=== PATIENT | male | born 1975 | race Caucasian/White ===

== ENCOUNTER 2024-06-29 21:06 | Observation (INO) | payer OTHER ==
[2024-06-29] MEDS ORDERED: Sodium Chloride 0.9% 1000 ML 1,000 ML ONE (21:34)
[2024-06-29] MEDS ORDERED: PROTONIX 40 MG IV IV ONE (21:34)
[2024-06-29] MEDS ORDERED: Zofran 4 MG/2 ML VIAL ONE (21:34)
[2024-06-29 21:37] LABS: Absolute Neutrophil Ct (ANC) 7.48 x10^3/uL (1.78-5.38); BASOPHIL % 0.4 % (0.2-1.2); Basophil (Absolute #) 0.05 x10^3/uL (0.01-0.08); Eosinophil % 2.4 % (0.8-7.0); Eosinophil (Absolute #) 0.29 x10^3/uL (0.04-0.54); Hematocrit 44.2 % (40.1-51.0); Hemoglobin 15.7 g/dL (13.7-17.5); IMMATURE GRAN # 0.07 x10^3u/L (0.001-0.031); IMMATURE GRAN % 0.6 % (0.001-0.429); Lymphocytes % 26.4 % (21.8-53.1); Mean Cell Volume 85.7 fL (79.0-92.2); Mean Corpuscular Hemoglobin 30.4 pg (25.7-32.2); Mean Corpuscular Hgb Concent. 35.5 g/dL (32.3-36.5); Mean Platelet Volume 10.4 fL (9.4-12.4); Monocyte (Absolute #) 1.03 x10^3/uL (0.30-0.82); Monocytes % 8.5 % (5.3-12.2); Neutrophil % 61.7 % (34.0-67.9); Platelet Count 212 x10^3/uL (163-337); Red Blood Count 5.16 x10^6/uL (4.63-6.08); Red Cell Distribution Width 11.9 % (11.6-14.4); White Blood Count 12.1 x10^3/uL (4.23-9.07)
[2024-06-29] MEDS: Sodium Chloride 0.9% 1000 ML 1,000 ML IV STA (21:37)
[2024-06-29] MEDS: Zofran 4 MG/2 ML VIAL IV ONE (21:38)
[2024-06-29] MEDS: PROTONIX 40 MG IV IV ONE (21:39)
[2024-06-29 21:53] LABS: ALBUMIN 4.5 g/dL (3.5-5.0); ANION GAP 15.5 MEQ/L (5-15); BILIRUBIN,TOTAL 0.4 mg/dL (0.2-1.3); Calcium 9.5 mg/dL (8.4-10.2); Creatinine 1 0.77 mg/dL (0.66-1.25); EST GLOMERULAR FILTRATION RATE 110.4 ML/MIN; Potassium 3.9 mmol/L (3.5-5.1); Total Protein 7.7 g/dL (6.3-8.2)
--- NOTE | 2024-06-29 22:25 | ERPHSYRPT ---
- History of Present Illness Time Seen by Provider: 06/29/24 21:07 Historian: patient Exam Limitations: no limitations Patient Subjective Stated Complaint: pt states sharp pain to stomach Triage Nursing Assessment: pt ambulated into the er; pt is axo x4; c/o abd pain; pt states 9/10 to epigastric region; pt c/o nausea, denies vomiting; abd round, tender; skin PDW; pt states SOB; hypertensive Physician History: 49 years old male with history of hypertension, hyperlipidemia presented in the ER with complaint of epigastric/right upper quadrant pain sudden onset almost an hour prior to arrival with associated nausea and dry heaving. Patient reports moderate to severe sharp pain, aggravated with palpation and movements. Reports because of severe pain having some difficulty breathing. Denies any radiation of pain to the chest but to the back. Allergies/Adverse Reactions: Bleach (Sodium Hypochlorite) Allergy (Verified 06/29/24 21:11) clams Allergy (Verified 06/29/24 21:11) Penicillins Allergy (Verified 06/29/24 21:11) Sulfa (Sulfonamide Antibiotics) Allergy (Verified 06/29/24 21:11) Home Medications: Albuterol Sulfate [Albuterol Sulfate Hfa] 2 puff IH Q4HPRN PRN 06/29/24 [History] Atorvastatin Calcium 20 mg PO HS 06/29/24 [History] Lisinopril 20 mg [Zestril 20 MG] 20 mg PO HS 06/29/24 [History] Lumateperone Tosylate [Caplyta] 42 mg PO HS 06/29/24 [History] Meclizine HCl 25 mg [Antivert 25 mg] 25 mg PO BID PRN 06/29/24 [History] Paliperidone [Paliperidone ER] 6 mg PO HS 06/29/24 [History] Sertraline HCl 50 mg [Zoloft 50 mg Tablet] 75 mg PO HS 06/29/24 [History] Umeclidinium Brm/Vilanterol Tr [Anoro Ellipta 62.5-25 Mcg INH] 1 each IH DAILY 06/29/24 [History] Hx Tetanus, Diphtheria Vaccination/Date Given: No (unknown) Hx Influenza Vaccination/Date Given: No Hx Pneumococcal Vaccination/Date Given: No Travel Risk - International Travel Have you traveled outside of the country in past 3 weeks: No - Emerging Infectious Disease Are you exhibiting symptoms associated with any current EIDs: Yes Symptoms: Abdominal Pain - Review of Systems Constitutional: No Symptoms Eyes: No Symptoms Ears, Nose, & Throat: No Symptoms Respiratory: No Symptoms Cardiac: No Symptoms Abdominal/Gastrointestinal: Abdominal Pain, Nausea, Vomiting Genitourinary Symptoms: No Symptoms Musculoskeletal: No Symptoms Skin: No Symptoms Neurological: No Symptoms Endocrine: No Symptoms Hematologic/Lymphatic: No Symptoms, Easy Bruising - Past Medical History Neurological History: No Pertinent History ENT History: No Pertinent History Cardiac History: High Cholesterol, Hypertension Respiratory History: Other Endocrine Medical History: Other Musculoskeletal History: Arthritis GI Medical History: No Pertinent History History: No Pertinent History Psycho-Social History: Anxiety, Bipolar, Depression Male Reproductive Disorders: No Pertinent History - Past Surgical History Past Surgical History: No - Social History Smoking Status: Former smoker Exposure to second hand smoke: No Drug Use: none - Social Determinants of Health Will the patient participate in the screening: Yes Do you worry about a steady place to live?: No Do you have any problems with any of the following?: No known problems In the past 12 months,have you had to go without utilities?: No Transportation Issues: No Has anyone in your support network made you feel unsafe?: No Have you or anyone in your house had to go without enough: No - Nursing Vital Signs Nursing Vital Signs: Initial Vital Signs Pulse Rate 82 06/29/24 21:30 Respiratory Rate 16 06/29/24 21:30 Blood Pressure 138/109 06/29/24 21:30 O2 Sat by Pulse Oximetry 99 06/29/24 21:30 Pain Scale Pain Intensity 9 - Physical Exam General Appearance: no apparent distress, alert Eye Exam: PERRL/EOMI Ears, Nose, Throat Exam: normal ENT inspection Neck Exam: normal inspection, full range of motion Respiratory Exam: normal breath sounds, lungs clear Cardiovascular Exam: regular rate/rhythm, normal heart sounds Gastrointestinal/Abdomen Exam: soft, normal bowel sounds, tenderness (Epiga stric, right upper quadrant with positive Landeros sign), guarding Extremity Exam: normal inspection, normal range of motion Neurologic Exam: alert, oriented x 3, cooperative, 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 Skin Exam: normal color SpO2 Interpretation: normal SpO2: 99 O2 Delivery: Room Air - Course EKG Interpreted by Me: RATE, Sinus Rhythm, NORMAL AXIS, NORMAL INTERVALS, NORMAL QRS Ordered Tests: Medication Summary Generic Name Dose Route Start Last Admin Trade Name Freq PRN Reason Stop Dose Admin Acetaminophen 650 mg 07/01/24 10:41 07/01/24 10:51 Acetaminophen 325 Mg Tablet PO 07/31/24 10:40 650 mg Q4H PRN PRN Administration PAIN AND/OR FEVER Hydrocodone Bitart/Acetaminophen 1 tab 07/02/24 13:23 07/02/24 23:49 Hydrocodone/Apap 5/325 1 Tab Tablet PO 07/07/24 13:22 1 tab Q4H PRN PRN Administration PAIN Albuterol/Ipratropium 3 ml 06/30/24 01:29 06/30/24 05:27 Ipratropium/Albuterol Sulfate 3 Ml Ampul.Neb IH 07/30/24 01:28 3 ml Q4HPRN PRN Administration SHORTNESS OF BREATH/WHEEZING Enoxaparin Sodium 40 mg 07/03/24 10:00 Enoxaparin Sodium 40 Mg/0.4 Ml Syringe SQ 08/02/24 09:59 DAILY HUMPHREY Levofloxacin/Dextrose 750 mg in 150 mls @ 100 mls/hr 07/01/24 12:00 07/02/24 09:16 Levofloxacin 750mg/150ml D5w IV 07/31/24 11:59 100 mls/hr Q24H10 HUMPHREY Administration Potassium Chloride/Dextrose/Sod Cl 1,000 mls @ 80 mls/hr 07/02/24 13:30 07/02/24 23:51 D5w/0.45ns W/ 20meq Kcl 1000 Ml IV 08/01/24 13:29 80 mls/hr .[id number] HUMPHREY Administration Lisinopril 20 mg 06/30/24 22:00 07/02/24 22:05 Lisinopril 20 Mg Tablet PO 07/30/24 21:59 20 mg HS HUMPHREY Administration Meclizine HCl 25 mg 07/02/24 07:43 Meclizine Hcl 25 Mg Tablet PO 08/01/24 07:42 BIDPRN PRN VERTIGO Morphine Sulfate 4 mg 06/30/24 01:29 07/02/24 13:12 Morphine Sulfate 4 Mg/Ml Injection IV 07/07/24 12:00 4 mg Q3H PRN PRN Administration PAIN Ondansetron HCl 4 mg 06/30/24 01:29 06/30/24 02:57 Ondansetron Hcl 4 Mg/2 Ml Vial IV 07/30/24 01:28 4 mg Q6H PRN PRN Administration NAUSEA/VOMITING Patient Own Med: 1 each 06/30/24 22:00 07/02/24 22:04 Caplyta 42 Mg PO 07/30/24 21:59 1 each Capsule HS HUMPHREY Administration Patient Own Med : 1 each 07/04/24 22:00 Paliperidone Er 6 Mg PO 08/03/24 21:59 Tablet HS HUMPHREY Patient Own Med: 1 each 06/30/24 22:00 07/02/24 22:04 Paliperidone 3 Mg Er PO 07/03/24 22:01 1 each Tablet HS HUMPHREY Administration Anoro 62.5/25 - 1 each 07/02/24 10:00 07/02/24 08:28 Patient Med 08/01/24 09:59 1 each DAILY HUMPHREY Administration Polyethylene Glycol 17 gm 07/01/24 15:00 07/02/24 09:17 Polyethylene Glycol 3350 17 Gm Packet PO 07/31/24 14:59 Not Given DAILY HUMPHREY Sertraline HCl 75 mg 06/30/24 22:00 07/02/24 22:05 Sertraline Hcl 50 Mg Tab PO 07/30/24 21:59 75 mg HS HUMPHREY Administration Simvastatin 40 mg 06/30/24 22:00 07/02/24 22:04 Simvastatin 20 Mg Tablet PO 07/30/24 21:59 40 mg HS HUMPHREY Administration Discontinued Medications Generic Name Dose Route Start Last Admin Trade Name Freq PRN Reason Stop Dose Admin Albuterol Sulfate 2 puff 06/30/24 19:00 Albuterol Common Canister Inhaler 07/30/24 18:59 Q4H PRN PRN SHORTNESS OF BREATH/WHEEZING Albuterol/Ipratropium 3 ml 06/30/24 10:00 Ipratropium/Albuterol Sulfate 3 Ml Ampul.Neb 07/30/24 09:59 DAILY HUMPHREY Bupivacaine HCl Confirm 07/02/24 10:49 Bupivacaine Hcl 2.5 Mg/Ml 10 Ml Administered 07/02/24 10:50 Dose 10 ml .ROUTE .STK-MED ONE Dexamethasone Sodium Phosphate Confirm 07/02/24 10:59 Dexamethasone Sod Phosphate 4 Mg/Ml Ml Administered 07/02/24 11:00 Dose 8 mg .ROUTE .STK-MED ONE Fentanyl Citrate Confirm 07/02/24 10:59 Fentanyl Citrate 100 Mcg/2 Ml* Vial Administered 07/02/24 11:00 Dose 100 mcg .ROUTE .STK-MED ONE Sodium Chloride 1,000 mls @ 999 mls/hr 06/29/24 21:28 06/29/24 23:28 Sodium Chloride 0.9% 1000 Ml IV 06/29/24 22:28 Infused .Q1H1M STA Infusion Sodium Chloride Confirm 06/29/24 21:34 Sodium Chloride 0.9% 1000 Ml Administered 06/29/24 21:35 Dose 1,000 mls @ ud .ROUTE .STK-MED ONE Sodium Chloride 1,000 mls @ 125 mls/hr 06/29/24 23:15 07/02/24 14:11 Sodium Chloride 0.9% 1000 Ml IV 07/29/24 23:14 Not Given .Q8H HUMPHREY Piperacillin Sod/Tazobactam 100 mls @ 200 mls/hr 07/01/24 12:00 Sod 3.375 gm/ Sodium Chloride IV 07/04/24 11:59 Q6HT HUMPHREY Lactated Ringer's 1,000 mls @ 50 mls/hr 07/02/24 08:30 07/02/24 10:17 Lactated Ringers IV 08/01/24 08:29 50 mls/hr .Q20H HUMPHREY Administration Clindamycin HCl/Dextrose 900 mg in 50 mls @ 100 mls/hr 07/02/24 08:30 Clindamycin-D5w 900 Mg/50 Ml IV 07/02/24 08:59 ONCALLTOOR HUMPHREY Clindamycin HCl/Dextrose 900 mg in 50 mls @ 100 mls/hr 07/02/24 09:30 07/02/24 10:18 Clindamycin-D5w 900 Mg/50 Ml IV 07/03/24 18:00 100 mls/hr ONCALLTOOR HUMPHREY Administration Ketorolac Tromethamine Confirm 07/02/24 10:59 Ketorolac Tromethamine 30 Mg/Ml Inj Administered 07/02/24 11:00 Dose 30 mg .ROUTE .STK-MED ONE Lidocaine HCl Confirm 07/02/24 10:59 Lidocaine - Mpf 2% 5 Ml Vial Administered 07/02/24 11:00 Dose 5 ml .ROUTE .STK-MED ONE Lisinopril 20 mg 06/30/24 10:00 06/30/24 11:05 Lisinopril 20 Mg Tablet PO 07/30/24 09:59 Not Given DAILY HUMPHREY Midazolam HCl Confirm 07/02/24 10:59 Midazolam Hcl 2 Mg/2 Ml Vial Administered 07/02/24 11:00 Dose 2 mg .ROUTE .STK-MED ONE Miscellaneous Information 1 each 06/30/24 07:30 Medication Intervention 1 Each Each 07/30/24 07:29 .RN TO CHECK HUMPHREY Miscellaneous Information 1 each 06/30/24 07:30 Medication Intervention 1 Each Each MC 07/30/24 07:29 .RN TO CHECK HUMPHREY Miscellaneous Information 1 each 06/30/24 07:30 Medication Intervention 1 Each Each MC 07/30/24 07:29 .RN TO CHECK HUMPHREY Morphine Sulfate 4 mg 06/29/24 23:04 06/29/24 23:11 Morphine Sulfate 4 Mg/Ml Injection IV 06/29/24 23:05 4 mg STAT ONE Administration Morphine Sulfate Confirm 06/29/24 23:11 Morphine Sulfate 4 Mg/Ml Injection Administered 06/29/24 23:12 Dose 4 mg .ROUTE .STK-MED ONE Morphine Sulfate 4 mg 06/30/24 00:33 06/30/24 00:40 Morphine Sulfate 4 Mg/Ml Injection IV 06/30/24 00:34 4 mg STAT ONE Administration Morphine Sulfate Confirm 06/30/24 00:39 Morphine Sulfate 4 Mg/Ml Injection Administered 06/30/24 00:40 Dose 4 mg .ROUTE .STK-MED ONE Ondansetron HCl 4 mg 06/29/24 21:28 06/29/24 21:38 Ondansetron Hcl 4 Mg/2 Ml Vial IV 06/29/24 21:29 4 mg STAT ONE Administration Ondansetron HCl Confirm 06/29/24 21:34 Ondansetron Hcl 4 Mg/2 Ml Vial Administered 06/29/24 21:35 Dose 4 mg .ROUTE .STK-MED ONE Ondansetron HCl Confirm 07/02/24 10:59 Ondansetron Hcl 4 Mg/2 Ml Vial Administered 07/02/24 11:00 Dose 4 mg .ROUTE .STK-MED ONE Pantoprazole Sodium 40 mg 06/29/24 21:28 06/29/24 21:39 Pantoprazole 40 Mg Vial IV 06/29/24 21:29 40 mg STAT ONE Administration Pantoprazole Sodium Confirm 06/29/24 21:34 Pantoprazole 40 Mg Vial Administered 06/29/24 21:35 Dose 40 mg IV .STK-MED ONE Patient Own Med : 1 each 06/30/24 22:00 Paliperidone Er 6 Mg PO 07/30/24 21:59 Tablet HS HUMPHREY Phenylephrine HCl Confirm 07/02/24 11:25 Phenylephrine 10 Mg/Ml Vial Administered 07/02/24 11:26 Dose 10 mg .ROUTE .STK-MED ONE Propofol Confirm 07/02/24 10:59 Propofol 10 Mg/Ml 20ml Vial Administered 07/02/24 11:00 Dose 200 mg IV .STK-MED ONE Rocuronium [place] Confirm 07/02/24 10:59 Rocuronium [place] 50 Mg/5 Ml Vial Administered 07/02/24 11:00 Dose 50 mg IV .STK-MED ONE Sertraline HCl 75 mg 06/30/24 10:00 06/30/24 11:04 Sertraline Hcl 50 Mg Tab PO 07/30/24 09:59 Not Given DAILY [facility] Simvastatin 20 mg 06/30/24 10:00 Simvastatin 20 Mg Tablet PO 07/30/24 09:59 DAILY [facility]MP[facility]REY Simvastatin 40 mg 06/30/24 10:00 06/30/24 11:05 Simvastatin 20 Mg Tablet PO 07/30/24 09:59 Not Given DAILY [facility] Sugammadex Sodium Confirm 07/02/24 10:59 Sugammadex Sodium 200 Mg/2 Ml Vial Administered 07/02/24 11:00 Dose 200 mg IV .STK-MED ONE Lab/Rad Data: Laboratory Result Diagrams 06/29/24 21:34 06/29/24 21:34 Laboratory Results 06/29/24 06/29/24 06/29/24 Range/Units 23:44 23:19 21:39 WBC (4.23-9.07) x10^3/uL RBC (4.63-6.08) x10^6/uL Hgb (13.7-17.5) g/dL Hct (40.1-51.0) % MCV (79.0-92.2) fL MCH (25.7-32.2) pg MCHC (32.3-36.5) g/dL RDW (11.6-14.4) % Plt Count (163-337) x10^3/uL MPV (9.4-12.4) fL Gran % (34.0-67.9) % Immature Gran % (Auto) (0.001-0.429) % Nucleat RBC Rel Count (0.00-0.2) % Eos # (Auto) (0.04-0.54) x10^3/uL Immature Gran # (Auto) (0.001-0.031) x10^3u/L Absolute Lymphs (auto) (1.32-3.57) x10^3/uL Absolute Monos (auto) (0.30-0.82) x10^3/uL Absolute Nucleated RBC (0.00-0.012) x10^3u/L Lymphocytes % (21.8-53.1) % Monocytes % (5.3-12.2) % Eosinophils % (0.8-7.0) % Basophils % (0.2-1.2) % Absolute Granulocytes (1.78-5.38) x10^3/uL Basophils # (0.01-0.08) x10^3/uL Sodium (135-145) mmol/L Potassium (3.5-5.1) mmol/L Chloride (98-107) mmol/L Carbon Dioxide (22-30) mmol/L Anion Gap (5-15) MEQ/L BUN (9-20) mg/dL Creatinine (0.66-1.25) mg/dL Estimated GFR ML/MIN Glucose (74-106) mg/dL Lactic Acid 2.3 H 2.4 H (0.4-2.0) Calcium (8.4-10.2) mg/dL Total Bilirubin (0.2-1.3) mg/dL AST (17-59) U/L ALT (0-50) U/L Alkaline Phosphatase (38-126) U/L Troponin I (0.000-0.033) ng/mL Serum Total Protein (6.3-8.2) g/dL Albumin (3.5-5.0) g/dL Lipase (23-300) U/L Urine Color Yellow (Yellow) Urine Appearance Clear (Clear) Urine pH 5.5 (4.6-8.0) Ur Specific [place] <=1.005 (1.005-1.030) Urine Protein Negative (Negative) Urine Glucose (UA) Negative (Negative) mg/dL Urine Ketones Negative (Negative) Urine Blood Negative (Negative) Urine Nitrite Negative (Negative) Urine Bilirubin Negative (Negative) Urine Urobilinogen 0.2 (0.2) mg/dL Ur Leukocyte Esterase Negative (Negative) U Hyaline Cast (Auto) NONE SEEN (0-2) /LPF Urine Microscopic RBC 0-2 (0-5) /HPF Urine Microscopic WBC 0-2 (0-5) /HPF Ur Epithelial Cells None Seen (None Seen) /HPF Urine Bacteria None Seen (None Seen) /HPF Urine Culture Reflexed NO (NO) 06/29/24 06/29/24 06/29/24 Range/Units 21:34 21:34 21:34 WBC 12.1 H (4.23-9.07) x10^3/uL RBC 5.16 (4.63-6.08) x10^6/uL Hgb 15.7 (13.7-17.5) g/dL Hct 44.2 (40.1-51.0) % MCV 85.7 (79.0-92.2) fL MCH 30.4 (25.7-32.2) pg MCHC 35.5 (32.3-36.5) g/dL RDW 11.9 (11.6-14.4) % Plt Count 212 (163-337) x10^3/uL MPV 10.4 (9.4-12.4) fL Gran % 61.7 (34.0-67.9) % Immature Gran % (Auto) 0.6 H (0.001-0.429) % Nucleat RBC Rel Count 0.0 (0.00-0.2) % Eos # (Auto) 0.29 (0.04-0.54) x10^3/uL Immature Gran # (Auto) 0.07 H (0.001-0.031) x10^3u/L Absolute Lymphs (auto) 3.20 (1.32-3.57) x10^3/uL Absolute Monos (auto) 1.03 H (0.30-0.82) x10^3/uL Absolute Nucleated RBC 0.00 (0.00-0.012) x10^3u/L Lymphocytes % 26.4 (21.8-53.1) % Monocytes % 8.5 (5.3-12.2) % Eosinophils % 2.4 (0.8-7.0) % Basophils % 0.4 (0.2-1.2) % Absolute Granulocytes 7.48 H (1.78-5.38) x10^3/uL Basophils # 0.05 (0.01-0.08) x10^3/uL Sodium 137 (135-145) mmol/L Potassium 3.9 (3.5-5.1) mmol/L Chloride 101 (98-107) mmol/L Carbon Dioxide 24 (22-30) mmol/L Anion Gap 15.5 H (5-15) MEQ/L BUN 13 (9-20) mg/dL Creatinine 0.77 (0.66-1.25) mg/dL Estimated GFR 110.4 ML/MIN Glucose 137 H (74-106) mg/dL Lactic Acid (0.4-2.0) Calcium 9.5 (8.4-10.2) mg/dL Total Bilirubin 0.40 (0.2-1.3) mg/dL AST 29 (17-59) U/L ALT 32 (0-50) U/L Alkaline Phosphatase 94 (38-126) U/L Troponin I < 0.012 (0.000-0.033) ng/mL Serum Total Protein 7.7 (6.3-8.2) g/dL Albumin 4.5 (3.5-5.0) g/dL Lipase 5023 H (23-300) U/L Urine Color (Yellow) Urine Appearance (Clear) Urine pH (4.6-8.0) Ur Specific [place] (1.005-1.030) Urine Protein (Negative) Urine Glucose (UA) (Negative) mg/dL Urine Ketones (Negative) Urine Blood (Negative) Urine Nitrite (Negative) Urine Bilirubin (Negative) Urine Urobilinogen (0.2) mg/dL Ur Leukocyte Esterase (Negative) U Hyaline Cast (Auto) (0-2) /LPF Urine Microscopic RBC (0-5) /HPF Urine Microscopic WBC (0-5) /HPF Ur Epithelial Cells (None Seen) /HPF Urine Bacteria (None Seen) /HPF Urine Culture Reflexed (NO) - Progress Progress: improved Progress Note: 06/30/24 00:36 49 years old is evaluated in the ER for upper abdominal pain with nausea and dry heaving. Patient is given symptomatic treatment. EKG is normal sinus rhythm with no acute ST elevations. Workup showed white count of 12, normal liver enzymes, lipase of 5000. CT abdomen pelvis consistent with cholecystitis and acute pancreatitis. No obvious CBD stone. Discussed with Dr. Allen Lee, reviewed history, workup, recommended obtaining ultrasound in the morning and admission to the hospitalist service. I have discussed with Dr. Nolan and patient is excepted for admission. Discussed the results of workup with patient family and plan of admission which they understand and agree. Discussed with Dr.: Mateo Ellison Will see patient in: hospital (observation) Counseled pt/family regarding: lab results, diagnosis, need for follow-up, rad results Medical Desision Making - Independent Historian Additional History obtained from: Mother - Discussion of managment Care discussed with:: specialist (Dr. Allen Lee general surgeon and Dr. Nolan hospitalist) Reviewed:: Test results Agreed on:: Treatment plan, place in obs Will see patient: in hospital - Diagnostic Testing Diagnostic test were ordered, analyzed, and reviewed by me: Yes Radiological Interpretation: Reviewed by me, Teleradiologist Report - Risk of complications The pt has a mod risk of morbidity or mortality based on: Need for prescription drug management The pt has a high risk of morbidity or mortality based on: Decision regarding hospitilization or escalation of hosp level of care - Departure Departure Disposition: Observation Clinical Impression: Cholelithiasis, Acute pancreatitis Condition: Stable Critical Care Time: No
[2024-06-29] MEDS: MORPHINE SULFATE 4 MG INJ IV ONE (23:11)
[2024-06-29] MEDS ORDERED: MORPHINE SULFATE 4 MG INJ ONE (23:11)
[2024-06-29] MEDS: Sodium Chloride 0.9% 1000 ML 1,000 ML IV SCH (23:16)
--- NOTE | 2024-06-29 23:24 | XRAY ---
CLINICAL HISTORY: EPIGASTRIC/RUQ PAIN COMPARISON: None TECHNIQUE: Contiguous axial images were obtained from the level of the diaphragm to the pubic symphysis without intravenous or oral contrast. Coronal and sagittal reconstructions were likewise performed and indicated to increase the sensitivity for detecting clinically relevant pathology. CT scan was performed according to ALARA (as low as reasonably achievable). FINDINGS: The visualized lung bases are clear. Evaluation of the abdominal and pelvic visceral organs is limited without intravenous contrast. The unenhanced liver, spleen and adrenal glands are grossly unremarkable. Small calculus of size approximately 6-7 mm, is seen in the gallbladder lumen. There is mild inflammatory fat stranding surrounding the pancreatic head and uncinate process. Correlation with serum amylase and lipase levels is suggested to rule out the possibility of mild acute pancreatitis. The kidneys are normal in size and attenuation without obvious calcification. There is no hydronephrosis or perinephric stranding. The ureters are normal in caliber. No adenopathy or fluid collections are seen. No evidence of focal or diffuse bowel wall thickening or evidence of bowel obstruction is seen. The appendix is visualized in the right lower quadrant and appears within normal limits. The aorta is normal in caliber. The urinary bladder is normal in contour. Pelvic viscera are grossly unremarkable. No aggressive appearing osseous lesions are identified. IMPRESSION: 1. Cholelithiasis. 2. Mild inflammatory fat stranding surrounding the pancreatic head and uncinate process. Correlation with serum amylase and lipase levels is suggested to rule out / look for the possibility of mild pancreatitis. Electronically Signed by: Nicolás Flores MD. (06/29/2024 23:21:07 EDT)
[2024-06-29 23:30] LABS: Appearance Clear (Clear); Bacteria None Seen /HPF (None Seen); Bilirubin Negative (Negative); Blood Negative (Negative); Epithelial Cells None Seen /HPF (None Seen); Glucose, Urine Negative (Negative); Hyaline Casts NONE SEEN /LPF (0-2); Ketones Negative (Negative); Leukocyte Esterase Negative (Negative); Nitrite Negative (Negative); Ph 5.5 (4.6-8.0); Protein,Urine Dip Negative (Negative); RBC 0-2 /HPF (0-5); Specific Gravity <=1.005 (1.005-1.030); Urobilinogen 0.2 mg/dL (0.2); WBC 0-2 /HPF (0-5)
[2024-06-29 23:34] LABS: ADD URINE CULTURE? NO (NO)
[2024-06-30] MEDS ORDERED: MORPHINE SULFATE 4 MG INJ ONE (00:39)
[2024-06-30] MEDS: MORPHINE SULFATE 4 MG INJ IV ONE (00:40)
--- NOTE | 2024-06-30 01:24 | PCM.HP ---
History of Present Illness - Chief Complaint Chief Complaint: abdominal pain Date: 06/30/24 History of Present Illness: 49 y/o M with h/o HTN and bipolar disorder, who presents with one day of abdominal pain. Patient had onset this evening of severe, sharp, midepigastric pain, radiating to the back, worse with deep inspiration, associated with vomiting x1. He has no history of prior episodes of similar pain. He used to be a heavy drinker, but does not drink alcohol now or in the past few days. He has never had a history of gallstone disease. He had no other recent fever, chest pain, dyspnea, or dysuria. - Review of Systems Psychological: Anxiety All Other Systems: Reviewed and Negative Medications & Allergies Home Medications: Home Medication List Albuterol Sulfate [Albuterol Sulfate Hfa] 2 puff IH Q4HPRN PRN 06/29/24 [History Confirmed 06/29/24] Atorvastatin Calcium 20 mg PO DAILY 06/29/24 [History Confirmed 06/29/24] Lisinopril 20 mg [Zestril 20 MG] 20 mg PO DAILY 06/29/24 [History Confirmed 06/29/24] Lumateperone Tosylate [Caplyta] 42 mg PO DAILY 06/29/24 [History Confirmed 06/29/24] Meclizine HCl 25 mg [Antivert 25 mg] 25 mg PO BID PRN 06/29/24 [History Confirmed 06/29/24] Paliperidone [Paliperidone ER] 6 mg PO DAILY 06/29/24 [History Confirmed 06/29/24] Sertraline HCl 50 mg [Zoloft 50 mg Tablet] 75 mg PO DAILY 06/29/24 [History Confirmed 06/29/24] Umeclidinium Brm/Vilanterol Tr [Anoro Ellipta 62.5-25 Mcg INH] 1 each IH DAILY 06/29/24 [History Confirmed 06/29/24] Allergies/Adverse Reactions: Allergies Allergy/AdvReac Type Severity Reaction Status Date / Time Bleach (Sodium Hypochlorite) Allergy Verified 06/29/24 21:11 clams Allergy Verified 06/29/24 21:11 Penicillins Allergy Verified 06/29/24 21:11 Sulfa (Sulfonamide Allergy Verified 06/29/24 21:11 Antibiotics) - Past Medical History Neurological History: No Pertinent History ENT History: No Pertinent History Cardiac History: High Cholesterol, Hypertension Respiratory History: Other Endocrine Medical History: Other Musculoskelatal History: Arthritis GI Medical History: No Pertinent History History: No Pertinent History Pyscho-Social History: Anxiety, Bipolar, Depression Male Reproductive Disorders: No Pertinent History - Past Surgical History Past Surgical History: No Significant Family History: no pertinent family hx - Social History Smoking Status: Former smoker Exposure to second hand smoke: No Alcohol: None Drug Use: none - Social Determinants of Health Will the patient participate in the screening: Yes Do you worry about a steady place to live?: No Do you have any problems with any of the following?: No known problems In the past 12 months,have you had to go without utilities?: No Have you or anyone in your house had to go without enough: No Transportation Issues: No Has anyone in your support network made you feel unsafe?: No - Physical Exam Vital Signs: Vital Signs - 24 hr Pulse Resp BP Pulse Ox 06/30/24 00:40 99 06/30/24 00:30 88 27 H 134/71 96 06/30/24 00:00 83 24 145/83 97 06/29/24 23:30 85 29 H 135/84 06/29/24 23:00 86 17 177/117 98 06/29/24 22:31 126 H 17 144/87 97 06/29/24 22:24 85 17 149/78 99 06/29/24 22:00 84 22 143/82 100 06/29/24 21:30 82 16 138/109 99 General Appearance: no apparent distress Neurologic Exam: alert, oriented x 3, cooperative Respiratory Exam: normal breath sounds, lungs clear, No respiratory distress Cardiovascular Exam: regular rate/rhythm, normal heart sounds, No edema Gastrointestinal/Abdomen Exam: tenderness, No distention, No guarding, No rebound Results - Labs Lab/Micro Results: Lab Results-Last 24 Hours 06/29/24 06/29/24 06/29/24 Range/Units 21:34 21:34 21:34 WBC 12.1 H (4.23-9.07) x10^3/uL RBC 5.16 (4.63-6.08) x10^6/uL Hgb 15.7 (13.7-17.5) g/dL Hct 44.2 (40.1-51.0) % MCV 85.7 (79.0-92.2) fL MCH 30.4 (25.7-32.2) pg MCHC 35.5 (32.3-36.5) g/dL RDW 11.9 (11.6-14.4) % Plt Count 212 (163-337) x10^3/uL MPV 10.4 (9.4-12.4) fL Gran % 61.7 (34.0-67.9) % Immature Gran % (Auto) 0.6 H (0.001-0.429) % Nucleat RBC Rel Count 0.0 (0.00-0.2) % Eos # (Auto) 0.29 (0.04-0.54) x10^3/uL Immature Gran # (Auto) 0.07 H (0.001-0.031) x10^3u/L Absolute Lymphs (auto) 3.20 (1.32-3.57) x10^3/uL Absolute Monos (auto) 1.03 H (0.30-0.82) x10^3/uL Absolute Nucleated RBC 0.00 (0.00-0.012) x10^3u/L Lymphocytes % 26.4 (21.8-53.1) % Monocytes % 8.5 (5.3-12.2) % Eosinophils % 2.4 (0.8-7.0) % Basophils % 0.4 (0.2-1.2) % Absolute Granulocytes 7.48 H (1.78-5.38) x10^3/uL Basophils # 0.05 (0.01-0.08) x10^3/uL Sodium 137 (135-145) mmol/L Potassium 3.9 (3.5-5.1) mmol/L Chloride 101 (98-107) mmol/L Carbon Dioxide 24 (22-30) mmol/L Anion Gap 15.5 H (5-15) MEQ/L BUN 13 (9-20) mg/dL Creatinine 0.77 (0.66-1.25) mg/dL Estimated GFR 110.4 ML/MIN Glucose 137 H (74-106) mg/dL Lactic Acid (0.4-2.0) Calcium 9.5 (8.4-10.2) mg/dL Total Bilirubin 0.40 (0.2-1.3) mg/dL AST 29 (17-59) U/L ALT 32 (0-50) U/L Alkaline Phosphatase 94 (38-126) U/L Troponin I < 0.012 (0.000-0.033) ng/mL Serum Total Protein 7.7 (6.3-8.2) g/dL Albumin 4.5 (3.5-5.0) g/dL Lipase 5023 H (23-300) U/L Urine Color (Yellow) Urine Appearance (Clear) Urine pH (4.6-8.0) Ur Specific [place] (1.005-1.030) Urine Protein (Negative) Urine Glucose (UA) (Negative) mg/dL Urine Ketones (Negative) Urine Blood (Negative) Urine Nitrite (Negative) Urine Bilirubin (Negative) Urine Urobilinogen (0.2) mg/dL Ur Leukocyte Esterase (Negative) U Hyaline Cast (Auto) (0-2) /LPF Urine Microscopic RBC (0-5) /HPF Urine Microscopic WBC (0-5) /HPF Ur Epithelial Cells (None Seen) /HPF Urine Bacteria (None Seen) /HPF Urine Culture Reflexed (NO) 06/29/24 06/29/24 Range/Units 21:39 23:19 WBC (4.23-9.07) x10^3/uL RBC (4.63-6.08) x10^6/uL Hgb (13.7-17.5) g/dL Hct (40.1-51.0) % MCV (79.0-92.2) fL MCH (25.7-32.2) pg MCHC (32.3-36.5) g/dL RDW (11.6-14.4) % Plt Count (163-337) x10^3/uL MPV (9.4-12.4) fL Gran % (34.0-67.9) % Immature Gran % (Auto) (0.001-0.429) % Nucleat RBC Rel Count (0.00-0.2) % Eos # (Auto) (0.04-0.54) x10^3/uL Immature Gran # (Auto) (0.001-0.031) x10^3u/L Absolute Lymphs (auto) (1.32-3.57) x10^3/uL Absolute Monos (auto) (0.30-0.82) x10^3/uL Absolute Nucleated RBC (0.00-0.012) x10^3u/L Lymphocytes % (21.8-53.1) % Monocytes % (5.3-12.2) % Eosinophils % (0.8-7.0) % Basophils % (0.2-1.2) % Absolute Granulocytes (1.78-5.38) x10^3/uL Basophils # (0.01-0.08) x10^3/uL Sodium (135-145) mmol/L Potassium (3.5-5.1) mmol/L Chloride (98-107) mmol/L Carbon Dioxide (22-30) mmol/L Anion Gap (5-15) MEQ/L BUN (9-20) mg/dL Creatinine (0.66-1.25) mg/dL Estimated GFR ML/MIN Glucose (74-106) mg/dL Lactic Acid 2.4 H (0.4-2.0) Calcium (8.4-10.2) mg/dL Total Bilirubin (0.2-1.3) mg/dL AST (17-59) U/L ALT (0-50) U/L Alkaline Phosphatase (38-126) U/L Troponin I (0.000-0.033) ng/mL Serum Total Protein (6.3-8.2) g/dL Albumin (3.5-5.0) g/dL Lipase (23-300) U/L Urine Color Yellow (Yellow) Urine Appearance Clear (Clear) Urine pH 5.5 (4.6-8.0) Ur Specific [place] <=1.005 (1.005-1.030) Urine Protein Negative (Negative) Urine Glucose (UA) Negative (Negative) mg/dL Urine Ketones Negative (Negative) Urine Blood Negative (Negative) Urine Nitrite Negative (Negative) Urine Bilirubin Negative (Negative) Urine Urobilinogen 0.2 (0.2) mg/dL Ur Leukocyte Esterase Negative (Negative) U Hyaline Cast (Auto) NONE SEEN (0-2) /LPF Urine Microscopic RBC 0-2 (0-5) /HPF Urine Microscopic WBC 0-2 (0-5) /HPF Ur Epithelial Cells None Seen (None Seen) /HPF Urine Bacteria None Seen (None Seen) /HPF Urine Culture Reflexed NO (NO) - Radiology Impressions Radiology Exams & Impressions: Radiology Procedures Category Date Time Status ABDOMEN AND PELVIS W/0 CONTRAS [CT] Stat Exams 06/29/24 21:29 Completed CHEST 1 VIEW (PORTABLE) Stat Exams 06/29/24 21:29 Taken GALLBLADDER [US] Stat Exams 06/30/24 07:59 Ordered CXR - no infiltrate, effusion, or edema (images reviewed) CT Abd/pelvis - mild inflammatory fat stranding around pancreatic head and uncinate process. Small calculus in gallbladder lumen. Assessment/Plan (1) Acute pancreatitis Current Visit: Yes Status: Acute Assessment & Plan: 49 y/o M with h/o HTN and bipolar disorder, here with acute pancreatitis. ## Acute pancreatitis - pain consistent with elevated lipase and imaging findings. Patient denies heavy alcohol consumption. He has a gallstone, but no evidence of obstructing stones or dilated CBD on CT. Possibly he passed a prior gallstone that led to this episode. Dr. Lee consulted by ED; will see patient tomorrow and requested a gallbladder ultrasound. - NPO - continue NS at 125 ml/hr - PRN morphine, zofran - RUQ U/S to assess for obstructing gallstones ## leukocytosis - mild, secondary to pancreatitis ## hypertension - elevated in setting of acute pain; improved once pain controlled. - continue home lisinopril 20 ## bipolar disorder - continue home Caplyta 42 daily, Zoloft 75 daily, and paliperdone 6 mg daily - patient requested if any mental health personnel able to speak to him during daytime; will discuss with case packer Code status: Full code Prophylaxis: low risk (Marely score 0) observation patient; encourage ambulation Diet: NPO Code(s): K85.90 - ACUTE PANCREATITIS WITHOUT NECROSIS OR INFECTION, UNSP Telemedicine Encounter - Telemedicine Encounter Telemedicine Encounter: "The entirety of this encounter was performed via Telemedicine" This visit was performed using real-time audio and video connection between my location and thepatients locationwith the assistance of a surrogateat the patients location. Written or verbal consent was obtained from the patient/guardian to perform this visit [facility] technology. Any patient questions regarding the telemedicine interaction were answered.
[2024-06-30] MEDS: Zofran 4 MG/2 ML VIAL IV PRN (02:57)
[2024-06-30] MEDS: MORPHINE SULFATE 4 MG INJ IV PRN (02:57)
[2024-06-30 04:23] LABS: Hematocrit 41.9 % (40.1-51.0); Hemoglobin 14.8 g/dL (13.7-17.5); Mean Cell Volume 85.5 fL (79.0-92.2); Mean Corpuscular Hemoglobin 30.2 pg (25.7-32.2); Mean Corpuscular Hgb Concent. 35.3 g/dL (32.3-36.5); Mean Platelet Volume 10.4 fL (9.4-12.4); Platelet Count 196 x10^3/uL (163-337); Red Cell Distribution Width 12.1 % (11.6-14.4); White Blood Count 18.5 x10^3/uL (4.23-9.07)
[2024-06-30 04:38] LABS: ALBUMIN 4.2 g/dL (3.5-5.0); ANION GAP 14.2 MEQ/L (5-15); BILIRUBIN,TOTAL 0.5 mg/dL (0.2-1.3); Calcium 8.9 mg/dL (8.4-10.2); Creatinine 1 0.74 mg/dL (0.66-1.25); EST GLOMERULAR FILTRATION RATE 111.8 ML/MIN; Potassium 4.3 mmol/L (3.5-5.1); Total Protein 7.3 g/dL (6.3-8.2)
[2024-06-30] MEDS: DUONEB 0.5-3 MG/3 ml Neb IH PRN (05:27)
[2024-06-30] MEDS ORDERED: MEDICATION INTERVENTION MC SCH ×3 (07:30)
--- NOTE | 2024-06-30 08:41 | XRAY ---
Indication: Epigastric pain. Comparison: None Portable chest inflated and clear. Heart not enlarged. Bony thorax intact. Impression: Nonacute chest.
[2024-06-30] MEDS ORDERED: NON-FORMULARY ITEM (Lumateperone Tosylate [Caplyta] 42 MG Capsule) PO SCH (10:00)
[2024-06-30] MEDS ORDERED: DUONEB 0.5-3 MG/3 ml Neb IH SCH (10:00)
[2024-06-30] MEDS ORDERED: ZOCOR 20MG PO SCH (10:00)
[2024-06-30] MEDS ORDERED: NON-FORMULARY ITEM (Atorvastatin Calcium [Atorvastatin Calcium] 20 MG Tablet) PO SCH (10:00)
[2024-06-30] MEDS ORDERED: PALIPERIDONE 6 MG PO SCH (10:00)
[2024-06-30] MEDS: Zestril 20 MG PO SCH ×2 (10:42→21:09)
[2024-06-30] MEDS: ZOCOR 20MG PO SCH ×2 (10:42→21:10)
[2024-06-30] MEDS: ZOLOFT 50 MG TABLET PO SCH ×2 (10:42→21:11)
--- NOTE | 2024-06-30 11:52 | XRAY ---
Indication: Gallstone. Two-dimensional gallbladder sonogram performed. Comparison: None Pancreas not well seen due to overlying bowel gas. Visualized gallbladder normally distended with 9 mm mobile gallstone. No abnormal gallbladder wall thickening or pericholecystic fluid. Common bile duct measures 2.6 mm. No intrahepatic biliary distention. Remaining visualized liver and right kidney are sonographically unremarkable. Right kidney measures 10.5 x 6.2 x 6.5 cm. Impression: Nonvisualization pancreas. Cholelithiasis without cholecystitis or biliary distention. Remaining gallbladder sonogram is negative.
--- NOTE | 2024-06-30 18:43 | PCM.NOTE ---
Mr. Abrams is a 49 year old male with a pmhx of HTN and bipolar disorder admitted 06/30/24 with acute pancreatitis and Cholelithiasis after experiencing a one day history of sharp RUQ pain radiating to the back, aggravated by deep breathing. Associated vomiting. History of alcohol abuse but states he has not had a drink in years. CT findings consistent cholelithiasis and pancreatitis. GB US consistent with cholelithiasis without cholecystitis or biliary distention. Surgery consulted for cholelithiasis - plan to monitor lipase daily, consider surgical intervention when pancreatitis improves. Patient still endorses 8/10 RUQ pain with radiation to his back. No vomiting today. Cholesterol and triglycerides elevated and Zocor increased to 40mg. Plan to ADAT, pain control with morphine.
[2024-06-30] MEDS ORDERED: VENTOLIN COMMON CANISTER IH PRN (19:00)
[2024-06-30] MEDS: PATIENT OWN MEDICATION PO SCH ×2 (21:08→21:09)
[2024-06-30] MEDS ORDERED: PATIENT OWN MEDICATION PO SCH (22:00)
--- NOTE | 2024-07-01 05:14 | PCM.NOTE ---
Date and Time: 07/01/24 0508 Subjective Assessment: Mr. Abrams is a 49 year old male with a pmhx of HTN and bipolar disorder admitted 06/30/24 with acute pancreatitis and Cholelithiasis after experiencing a one day history of sharp RUQ pain radiating to the back, aggravated by deep breathing. Associated vomiting. History of alcohol abuse but states he has not had a drink in years. CT findings consistent cholelithiasis and pancreatitis. GB US consistent with cholelithiasis without cholecystitis or biliary distention. Surgery consulted for cholelithiasis - plan to monitor lipase daily, consider surgical intervention when pancreatitis improves. 07/01/24: Met with patient and family at bedside. Endorses improved RUQ and low abdominal pain now 03/06. No n/v. Lipase is WNL today. Surgery has been consulted - recommending CLD for now, they will evaluate patient later today - surgical recommendations pending. WBC improving. Will add zosyn. - Review of Systems Constitutional: No Symptoms Eyes: No Symptoms Ears, Nose, & Throat: No Symptoms Respiratory: No Symptoms Cardiac: No Symptoms Abdominal/Gastrointestinal: Abdominal Pain Genitourinary Symptoms: No Symptoms Musculoskeletal: No Symptoms Skin: No Symptoms Neurological: No Symptoms Psychological: No Symptoms Endocrine: No Symptoms Hematologic/Lymphatic: No Symptoms Immunological/Allergic: No Symptoms Objective Exam General Appearance: no apparent distress Neurologic Exam: alert, oriented x 3, cooperative Skin Exam: normal color Eye Exam: PERRL Ears, Nose, Throat Exam: normal ENT inspection Neck Exam: normal inspection Respiratory Exam: normal breath sounds, lungs clear Cardiovascular Exam: regular rate/rhythm, normal heart sounds Gastrointestinal/Abdomen Exam: soft, normal bowel sounds, tenderness (RUQ) Extremity Exam: normal inspection Back Exam: normal inspection Male Genitalia Exam: deferred Rectal Exam: deferred Objective Data Vital Signs: Vital Signs - 24 hr Temp Pulse Resp BP Pulse Ox 07/01/24 04:00 98.5 F 99 H 16 110/54 95 07/01/24 00:00 97.0 F 97 H 18 123/64 98 06/30/24 21:21 80 18 96 06/30/24 20:00 97.7 F 90 17 125/87 96 06/30/24 16:00 97.1 F 80 18 139/78 96 06/30/24 12:00 97.9 F 85 16 143/105 97 06/30/24 08:00 16 06/30/24 07:35 98.0 F 99 H 18 120/71 97 06/30/24 05:15 93 H 18 96 Pain Assessment - Last Documented Pain Intensity 4 Pain Scale Used 0-10 Pain Scale Intake and Output: Intake & Output 06/28/24 06/29/24 06/30/24 07/01/24 11:59 11:59 11:59 11:59 Intake Total 2862 Balance 2862 Weight 95.7 kg Lab Results: Lab Results-Last 24 Hours 06/30/24 06/30/24 Range/Units 04:10 07:21 Lactic Acid 1.8 (0.4-2.0) Triglycerides 849 H (30-150) mg/dL Cholesterol 241 H (50-200) mg/dL LDL Cholesterol 83 (30-100) mg/dL HDL Cholesterol 25 L (40-60) mg/dL Heart Disease Risk Ratio 10.0 Radiology Exams: Radiology Procedures Category Date Time Status ABDOMEN AND PELVIS W/0 CONTRAS [CT] Stat Exams 06/29/24 21:29 Completed CHEST 1 VIEW (PORTABLE) Stat Exams 06/29/24 21:29 Completed GALLBLADDER [US] Stat Exams 06/30/24 07:59 Completed Multi-Disciplinary Progress Notes: Multi-Disciplinary Progress Notes 06/30/24 11:00 (created 06/30/24 13:18) Case Management Note by Aishwarya Jane H&P NOTED PATIENT WANTED TO S/W MENTAL HEALTH PROFESSIONAL- S/W DILCIA SAMY DATA WAREHOUSING SPECIALIST- SHE REPORTS THIS WAS ABOUT HIS MEDICATIONS. NO NEED FOR RESEARCH GROUP DIRECTOR TO S/W PATIENT AT THIS TIME Initialized on 06/30/24 13:18 - END OF NOTE Assessment/Plan (1) Acute pancreatitis Current Visit: Yes Status: Acute Assessment & Plan: -NPO - ADAT -Daily lipase -IVF -Pain control -US with cholelithiasis without cholecystitis or biliary distention -CT showing cholelithiasis and pancreatitis -lipid with elevated cholesterol/triglycerides - increase zocor to 40mg daily 07/01: -lipase wnl -AD to CLD -IVF- continue pain control Code(s): K85.90 - ACUTE PANCREATITIS WITHOUT NECROSIS OR INFECTION, UNSP (2) Cholelithiasis Current Visit: Yes Status: Acute Assessment & Plan: -US/CT demonstrating cholelithiasis without cholecystitis - no biliary distention on US -Surgery consulted - plan to continue checking lipase level - may do surgery when pt stabilizes (3) Bipolar 1 disorder Current Visit: Yes Status: Acute Assessment & Plan: -continue home meds Code(s): F31.9 - BIPOLAR DISORDER, UNSPECIFIED (4) HTN (hypertension) Current Visit: Yes Status: Acute Assessment & Plan: -cotninue home meds Code(s): I10 - ESSENTIAL (PRIMARY) HYPERTENSION (5) Leukocytosis Current Visit: Yes Status: Acute Assessment & Plan: -secondary to pancreatitis -continue to treat and monitor trend Code(s): D72.829 - ELEVATED WHITE BLOOD CELL COUNT, UNSPECIFIED
[2024-07-01 05:29] LABS: BASOPHIL % 0.4 % (0.2-1.2); Basophil (Absolute #) 0.06 x10^3/uL (0.01-0.08); Eosinophil % 1.6 % (0.8-7.0); Eosinophil (Absolute #) 0.23 x10^3/uL (0.04-0.54); Hematocrit 40.9 % (40.1-51.0); Hemoglobin 13.9 g/dL (13.7-17.5); IMMATURE GRAN # 0.07 x10^3u/L (0.001-0.031); IMMATURE GRAN % 0.5 % (0.001-0.429); Lymphocyte (Absolute #) 1.69 x10^3/uL (1.32-3.57); Lymphocytes % 11.4 % (21.8-53.1); Mean Cell Volume 86.8 fL (79.0-92.2); Mean Corpuscular Hemoglobin 29.5 pg (25.7-32.2); Mean Platelet Volume 10.8 fL (9.4-12.4); Monocyte (Absolute #) 1.45 x10^3/uL (0.30-0.82); Monocytes % 9.8 % (5.3-12.2); Neutrophil % 76.3 % (34.0-67.9); Platelet Count 189 x10^3/uL (163-337); Red Blood Count 4.71 x10^6/uL (4.63-6.08); Red Cell Distribution Width 12.5 % (11.6-14.4); White Blood Count 14.8 x10^3/uL (4.23-9.07)
[2024-07-01 05:46] LABS: ALBUMIN 3.8 g/dL (3.5-5.0); ANION GAP 11.9 MEQ/L (5-15); BILIRUBIN,TOTAL 1.3 mg/dL (0.2-1.3); Calcium 8.7 mg/dL (8.4-10.2); Creatinine 1 0.85 mg/dL (0.66-1.25); EST GLOMERULAR FILTRATION RATE 107.2 ML/MIN; Potassium 3.9 mmol/L (3.5-5.1); Total Protein 6.8 g/dL (6.3-8.2)
--- NOTE | 2024-07-01 09:08 | CONS ---
REASON FOR CONSULTATION: Pancreatitis. HISTORY: The patient came in with a lipase over 5000. He did not know he had gallstones. He did not have any previous attacks. I am still not sure whether he has gallstones or not. He just went down for an ultrasound of his gallbladder. He has just gotten back. The report is not present. He is mid age. He has not had previous episodes. He had band-like abdominal pain. He is still having band-like abdominal pain. He is n.p.o. His lipase was noted at 5000. His total bilirubin was 0.5. This could be gallstone related. This could be otherwise either medically or EtOH related. We will follow his enzymes. At this time, his lipase has to come down to normal before there is any consideration of anything. We may get an MRCP at some point. I do not think he needs it at this moment. His bilirubin is 0.5. PLAN: Nothing by mouth and consider re-examination and lab work.
[2024-07-01] MEDS: TYLENOL 325 MG PO PRN (10:51)
[2024-07-01] MEDS: LEVOFLOXACIN 750MG/150ML D5W 750 MG/150 ML BAG IV SCH (11:44)
[2024-07-01] MEDS ORDERED: PIPERACILLIN/TAZOBACTAM 3.375 GM in Sodium Chloride 100ML MINI-BAG PLUS 100 ML IV SCH (12:00)
[2024-07-01] MEDS: Miralax Powder 17GM PACKET PO SCH (14:31)
--- NOTE | 2024-07-02 05:06 | PCM.NOTE ---
Date and Time: 07/02/24 0506 Subjective Assessment: Mr. Abrams is a 49 year old male with a pmhx of HTN and bipolar disorder admitted 06/30/24 with acute pancreatitis and Cholelithiasis after experiencing a one day history of sharp RUQ pain radiating to the back, aggravated by deep breathing. Associated vomiting. History of alcohol abuse but states he has not had a drink in years. CT findings consistent cholelithiasis and pancreatitis. GB US consistent with cholelithiasis without cholecystitis or biliary distention. Surgery consulted for cholelithiasis - plan to monitor lipase daily, consider surgical intervention when pancreatitis improves. 07/01/24: Met with patient and family at bedside. Endorses improved RUQ and low abdominal pain now 03/06. No n/v. Lipase is WNL today. Surgery has been consulted - recommending CLD for now, they will evaluate patient later today - surgical recommendations pending. WBC improving. Will add zosyn. 07/02/24: Met with patient bedside. Plan for cholecystecomy today. Lipase now wnl. Abdominal pain improved at -02/04 today. Tolerated CLD yesterday - no N/V. Most likely can discharge tomorrow. - Review of Systems Constitutional: No Symptoms Eyes: No Symptoms Ears, Nose, & Throat: No Symptoms Respiratory: No Symptoms Cardiac: No Symptoms Abdominal/Gastrointestinal: Abdominal Pain Genitourinary Symptoms: No Symptoms Musculoskeletal: No Symptoms Skin: No Symptoms Neurological: No Symptoms Psychological: No Symptoms Endocrine: No Symptoms Hematologic/Lymphatic: No Symptoms Immunological/Allergic: No Symptoms Objective Exam General Appearance: no apparent distress Neurologic Exam: alert, oriented x 3, cooperative Skin Exam: normal color Eye Exam: PERRL Ears, Nose, Throat Exam: normal ENT inspection Neck Exam: normal inspection Respiratory Exam: normal breath sounds, lungs clear Cardiovascular Exam: regular rate/rhythm, normal heart sounds Gastrointestinal/Abdomen Exam: soft, normal bowel sounds, tenderness (RUQ) Extremity Exam: normal inspection Back Exam: normal inspection Male Genitalia Exam: deferred Rectal Exam: deferred Objective Data Vital Signs: Vital Signs - 24 hr Temp Pulse Resp BP Pulse Ox 07/02/24 04:00 98.7 F 92 H 17 102/52 95 07/02/24 00:00 99.0 F 107 H 16 112/60 94 L 07/01/24 20:00 99.1 F 106 H 18 135/62 95 07/01/24 19:56 103 H 16 95 07/01/24 16:00 97.6 F 96 H 16 113/72 98 07/01/24 11:59 97.1 F 98 H 16 114/67 96 07/01/24 08:18 108 H 16 97 07/01/24 07:58 97.7 F 105 H 16 119/67 94 L Pain Assessment - Last Documented Pain Intensity 0 Pain Scale Used 0-10 Pain Scale Intake and Output: Intake & Output 06/29/24 06/30/24 07/01/24 07/02/24 11:59 11:59 11:59 11:59 Intake Total 2862 1866 Balance 2862 1866 Weight 95.7 kg Lab Results: Lab Results-Last 24 Hours 07/01/24 07/01/24 07/01/24 Range/Units 05:16 05:16 05:30 WBC 14.8 H (4.23-9.07) x10^3/uL RBC 4.71 (4.63-6.08) x10^6/uL Hgb 13.9 (13.7-17.5) g/dL Hct 40.9 (40.1-51.0) % MCV 86.8 (79.0-92.2) fL MCH 29.5 (25.7-32.2) pg MCHC 34.0 (32.3-36.5) g/dL RDW 12.5 (11.6-14.4) % Plt Count 189 (163-337) x10^3/uL MPV 10.8 (9.4-12.4) fL Gran % 76.3 H (34.0-67.9) % Immature Gran % (Auto) 0.5 H (0.001-0.429) % Nucleat RBC Rel Count 0.0 (0.00-0.2) % Eos # (Auto) 0.23 (0.04-0.54) x10^3/uL Immature Gran # (Auto) 0.07 H (0.001-0.031) x10^3u/L Absolute Lymphs (auto) 1.69 (1.32-3.57) x10^3/uL Absolute Monos (auto) 1.45 H (0.30-0.82) x10^3/uL Absolute Nucleated RBC 0.00 (0.00-0.012) x10^3u/L Lymphocytes % 11.4 L (21.8-53.1) % Monocytes % 9.8 (5.3-12.2) % Eosinophils % 1.6 (0.8-7.0) % Basophils % 0.4 (0.2-1.2) % Absolute Granulocytes 11.30 H (1.78-5.38) x10^3/uL Basophils # 0.06 (0.01-0.08) x10^3/uL Sodium 135 (135-145) mmol/L Potassium 3.9 (3.5-5.1) mmol/L Chloride 102 (98-107) mmol/L Carbon Dioxide 25 (22-30) mmol/L Anion Gap 11.9 (5-15) MEQ/L BUN 10 (9-20) mg/dL Creatinine 0.85 (0.66-1.25) mg/dL Estimated GFR 107.2 ML/MIN Glucose 130 H (74-106) mg/dL Calcium 8.7 (8.4-10.2) mg/dL Total Bilirubin 1.30 (0.2-1.3) mg/dL AST 22 (17-59) U/L ALT 22 (0-50) U/L Alkaline Phosphatase 83 (38-126) U/L Serum Total Protein 6.8 (6.3-8.2) g/dL Albumin 3.8 (3.5-5.0) g/dL Lipase 250 (23-300) U/L Radiology Exams: Radiology Procedures Category Date Time Status GALLBLADDER [US] Stat Exams 06/30/24 07:59 Completed Multi-Disciplinary Progress Notes: Multi-Disciplinary Progress Notes 07/01/24 11:48 Case Management Note by Aishwarya Jane S/W PATIENT- HE CONTINUES TO DENY ANY NEW NEEDS AT TIME OF DC. HE PLANS TO RETURN HOME TO HIS PLF AT TIME OF DC Initialized on 07/01/24 11:48 - END OF NOTE Assessment/Plan (1) Acute pancreatitis Current Visit: Yes Status: Acute Assessment & Plan: -NPO - ADAT -Daily lipase -IVF -Pain control -US with cholelithiasis without cholecystitis or biliary distention -CT showing cholelithiasis and pancreatitis -lipid with elevated cholesterol/triglycerides - increase zocor to 40mg daily 07/01: -lipase wnl -AD to CLD -IVF- continue pain control 07/02: -ADAT after surgery -lipase now wnl -Continue Zocor Code(s): K85.90 - ACUTE PANCREATITIS WITHOUT NECROSIS OR INFECTION, UNSP (2) Cholelithiasis Current Visit: Yes Status: Acute Assessment & Plan: -US/CT demonstrating cholelithiasis without cholecystitis - no biliary distention on US -Surgery consulted - plan to continue checking lipase level - may do surgery when pt stabilizes 07/02: -Cholecystectomy today- continue levaquin for now- ADAT after surgery -Most likely can d/c tomorrow (3) Bipolar 1 disorder Current Visit: Yes Status: Acute Assessment & Plan: -continue home meds Code(s): F31.9 - BIPOLAR DISORDER, UNSPECIFIED (4) HTN (hypertension) Current Visit: Yes Status: Acute Assessment & Plan: -cotninue home meds Code(s): I10 - ESSENTIAL (PRIMARY) HYPERTENSION (5) Leukocytosis Current Visit: Yes Status: Acute Assessment & Plan: -secondary to pancreatitis -continue to treat and monitor trend 07/02: -improving 11.9<14.8<18.5 Code(s): K85.90 - ACUTE PANCREATITIS WITHOUT NECROSIS OR INFECTION, UNSP (2) Cholelithiasis Current Visit: Yes Status: Acute (3) Bipolar 1 disorder Current Visit: Yes Status: Acute Code(s): F31.9 - BIPOLAR DISORDER, UNSPECIFIED (4) HTN (hypertension) Current Visit: Yes Status: Acute Code(s): I10 - ESSENTIAL (PRIMARY) HYPERTENSION (5) Leukocytosis Current Visit: Yes Status: Acute Code(s): D72.829 - ELEVATED WHITE BLOOD CELL COUNT, UNSPECIFIED
[2024-07-02 05:32] LABS: Absolute Neutrophil Ct (ANC) 8.27 x10^3/uL (1.78-5.38); BASOPHIL % 0.3 % (0.2-1.2); Basophil (Absolute #) 0.03 x10^3/uL (0.01-0.08); Eosinophil (Absolute #) 0.36 x10^3/uL (0.04-0.54); Hematocrit 37.1 % (40.1-51.0); Hemoglobin 12.5 g/dL (13.7-17.5); IMMATURE GRAN # 0.05 x10^3u/L (0.001-0.031); IMMATURE GRAN % 0.4 % (0.001-0.429); Lymphocyte (Absolute #) 1.97 x10^3/uL (1.32-3.57); Lymphocytes % 16.6 % (21.8-53.1); Mean Cell Volume 87.7 fL (79.0-92.2); Mean Corpuscular Hemoglobin 29.6 pg (25.7-32.2); Mean Corpuscular Hgb Concent. 33.7 g/dL (32.3-36.5); Mean Platelet Volume 10.6 fL (9.4-12.4); Monocyte (Absolute #) 1.22 x10^3/uL (0.30-0.82); Monocytes % 10.3 % (5.3-12.2); Neutrophil % 69.4 % (34.0-67.9); Platelet Count 175 x10^3/uL (163-337); Red Blood Count 4.23 x10^6/uL (4.63-6.08); Red Cell Distribution Width 12.5 % (11.6-14.4); White Blood Count 11.9 x10^3/uL (4.23-9.07)
[2024-07-02 06:02] LABS: ALBUMIN 3.6 g/dL (3.5-5.0); ANION GAP 13.2 MEQ/L (5-15); BILIRUBIN,TOTAL 1.1 mg/dL (0.2-1.3); Calcium 8.5 mg/dL (8.4-10.2); Creatinine 1 0.83 mg/dL (0.66-1.25); Potassium 3.8 mmol/L (3.5-5.1); Total Protein 6.7 g/dL (6.3-8.2)
[2024-07-02] MEDS: PATIENT OWN MEDICATION IH SCH (08:28)
[2024-07-02] MEDS ORDERED: CLINDAMYCIN-D5W 900 MG/50 ML*** 900 MG/50 ML BAG IV SCH (08:30)
[2024-07-02] MEDS: Lactated Ringers 1,000 ML IV SCH (10:17)
[2024-07-02] MEDS: CLINDAMYCIN-D5W 900 MG/50 ML*** 900 MG/50 ML BAG IV SCH (10:18)
[2024-07-02] MEDS ORDERED: Sensorcaine 0.25% 10 ML ONE (10:49)
[2024-07-02] MEDS ORDERED: Xylocaine-Mpf 2% 5 Ml Vial ONE (10:59)
[2024-07-02] MEDS ORDERED: SUBLIMAZE 100 MCG/2 ML ONE (10:59)
[2024-07-02] MEDS ORDERED: TORAdol 30 mg Injection ONE (10:59)
[2024-07-02] MEDS ORDERED: Decadron 4 MG INJ ONE (10:59)
[2024-07-02] MEDS ORDERED: BRIDION 200MG/2ML IV ONE (10:59)
[2024-07-02] MEDS ORDERED: ROCURONIUM BROMIDE IV ONE (10:59)
[2024-07-02] MEDS ORDERED: Versed 2 MG/2 ML Injection ONE (10:59)
[2024-07-02] MEDS ORDERED: Zofran 4 MG/2 ML VIAL ONE (10:59)
[2024-07-02] MEDS ORDERED: DIPRIVAN 200 MG/20 ML IV ONE (10:59)
[2024-07-02] MEDS ORDERED: PHENYLEPHRINE HCL ONE (11:25)
[2024-07-02] MEDS: D5W/0.45NS W/ 20mEq KCl 1000 ML 1,000 ML IV SCH (13:46)
[2024-07-02] MEDS: NORCO 5/325 MG PO PRN (23:49)
--- NOTE | 2024-07-03 05:20 | PCM.DS ---
Discharge Summary Date of Admission: 06/30/24 01:13 Date of Discharge: 07/03/24 Admitting Physician: OLIVIA CARLOS MD Consults: Consults on Case 06/30/24 08:32 Consult Surgery ROUTINE Primary Care Provider: MARY SALDAÑA MD Allergies Allergies Bleach (Sodium Hypochlorite) Allergy (Verified 06/29/24 21:11) clams Allergy (Verified 06/29/24 21:11) Penicillins Allergy (Verified 06/29/24 21:11) Sulfa (Sulfonamide Antibiotics) Allergy (Verified 06/29/24 21:11) Hospital Summary - Hospital Course Hospital Course: Mr. Abrams is a 49 year old male with a pmhx of HTN and bipolar disorder admit [facility] 06/30/24 with acute pancreatitis and Cholelithiasis after experiencing a one day history of sharp RUQ pain radiating to the back, aggravated by deep breathing. Associated vomiting. History of alcohol abuse but states he has not had a drink in years. CT findings consistent cholelithiasis and pancreatitis. GB US consistent with cholelithiasis without cholecystitis or biliary distention. Treated with IVF, supportive therapies and levaquin. Surgery consulted for cholelithiasis - Lap cholecystecomy performed 07/03/24 with lipase now now normal and patient tolerating CLD, minimal abdominal pain. Will advance diet to regular today, if he tolerates will discharge. Cleared by surgery with close follow up in 1-2 weeks. Patient provided with post surgery instructions. Discharge Note New Diagnosis: pancreatitis cholelithiasis Latest Assessment & Plan (1) Acute pancreatitis Current Visit: Yes Status: Acute Assessment & Plan: -NPO - ADAT -Daily lipase -IVF -Pain control -US with cholelithiasis without cholecystitis or biliary distention -CT showing cholelithiasis and pancreatitis -lipid with elevated cholesterol/triglycerides - increase zocor to 40mg daily 07/01: -lipase wnl -AD to CLD -IVF- continue pain control 07/02: -ADAT after surgery -lipase now wnl -Continue Zocor Code(s): K85.90 - ACUTE PANCREATITIS WITHOUT NECROSIS OR INFECTION, UNSP (2) Cholelithiasis Current Visit: Yes Status: Acute Assessment & Plan: -US/CT demonstrating cholelithiasis without cholecystitis - no biliary distention on US -Surgery consulted - plan to continue checking lipase level - may do surgery when pt stabilizes 07/02: -Cholecystectomy today- continue levaquin for now- ADAT after surgery -Most likely can d/c tomorrow (3) Bipolar 1 disorder Current Visit: Yes Status: Acute Assessment & Plan: -continue home meds Code(s): F31.9 - BIPOLAR DISORDER, UNSPECIFIED (4) HTN (hypertension) Current Visit: Yes Status: Acute Assessment & Plan: -cotninue home meds Code(s): I10 - ESSENTIAL (PRIMARY) HYPERTENSION (5) Leukocytosis Current Visit: Yes Status: Acute Assessment & Plan: -secondary to pancreatitis -continue to treat and monitor trend 07/02: -improving 11.9<14.8<18.5 I spent 35 minutes [id number] with the patient on the day of discharge performing discharge exam, discussing hospital stay and discharge instructions with patient and caregivers, preparation of discharge records, prescriptions & referral forms and addressing any questions/concerns the patient had as documented above. - Vitals & Intake/Output Vital Signs: Vital Signs Temperature 97.6 F 07/03/24 03:57 Pulse Rate 84 07/03/24 03:57 Respiratory Rate 17 07/03/24 04:00 Blood Pressure 97/54 07/03/24 03:57 O2 Sat by Pulse Oximetry 94 L 07/03/24 03:57 Intake & Output: Intake & Output 06/30/24 07/01/24 07/02/24 07/03/24 11:59 11:59 11:59 11:59 Intake Total 2862 2106 3061 Balance 2862 2106 3061 Weight 95.7 kg 95.7 kg - Lab Result Diagrams: 07/03/24 05:20 07/03/24 05:20 Lab Results-Last 24 Hrs: Lab Results-Last 24 Hours 07/02/24 07/02/24 Range/Units 05:20 05:20 WBC 11.9 H (4.23-9.07) x10^3/uL RBC 4.23 L (4.63-6.08) x10^6/uL Hgb 12.5 L (13.7-17.5) g/dL Hct 37.1 L (40.1-51.0) % MCV 87.7 (79.0-92.2) fL MCH 29.6 (25.7-32.2) pg MCHC 33.7 (32.3-36.5) g/dL RDW 12.5 (11.6-14.4) % Plt Count 175 (163-337) x10^3/uL MPV 10.6 (9.4-12.4) fL Gran % 69.4 H (34.0-67.9) % Immature Gran % (Auto) 0.4 (0.001-0.429) % Nucleat RBC Rel Count 0.0 (0.00-0.2) % Eos # (Auto) 0.36 (0.04-0.54) x10^3/uL Immature Gran # (Auto) 0.05 H (0.001-0.031) x10^3u/L Absolute Lymphs (auto) 1.97 (1.32-3.57) x10^3/uL Absolute Monos (auto) 1.22 H (0.30-0.82) x10^3/uL Absolute Nucleated RBC 0.00 (0.00-0.012) x10^3u/L Lymphocytes % 16.6 L (21.8-53.1) % Monocytes % 10.3 (5.3-12.2) % Eosinophils % 3.0 (0.8-7.0) % Basophils % 0.3 (0.2-1.2) % Absolute Granulocytes 8.27 H (1.78-5.38) x10^3/uL Basophils # 0.03 (0.01-0.08) x10^3/uL Sodium 137 (135-145) mmol/L Potassium 3.8 (3.5-5.1) mmol/L Chloride 105 (98-107) mmol/L Carbon Dioxide 23 (22-30) mmol/L Anion Gap 13.2 (5-15) MEQ/L BUN 9 (9-20) mg/dL Creatinine 0.83 (0.66-1.25) mg/dL Estimated GFR 108.0 ML/MIN Glucose 117 H (74-106) mg/dL Calcium 8.5 (8.4-10.2) mg/dL Total Bilirubin 1.10 (0.2-1.3) mg/dL AST 23 (17-59) U/L ALT 21 (0-50) U/L Alkaline Phosphatase 81 (38-126) U/L Serum Total Protein 6.7 (6.3-8.2) g/dL Albumin 3.6 (3.5-5.0) g/dL Lipase 105 (23-300) U/L - Procedures and Test Procedures and Tests throughout Hospitalization: Therapy Orders & Screens 06/30/24 01:56 Respiratory Therapy Assessment DAILY Comment: Diagnosis: Acute pancreatitis, cholelithiasis 07/02/24 13:30 Incentive Spirometry ROUTINE Comment: Diagnosis: abdominal pain Discharge Exam General Appearance: no apparent distress Neurologic Exam: alert, oriented x 3, cooperative Eye Exam: PERRL Ears, Nose, Throat Exam: normal ENT inspection Neck Exam: normal inspection Respiratory Exam: normal breath sounds, lungs clear Cardiovascular Exam: regular rate/rhythm, normal heart sounds Gastrointestinal/Abdomen Exam: soft, normal bowel sounds Male Genitalia Exam: deferred Rectal Exam: deferred Back Exam: normal inspection Extremity Exam: normal inspection Skin Exam: other (4 puncture sites covered in gauze/tegaderm) Final Diagnosis/Problem List - Final Discharge Diagnosis/Problem (1) Acute pancreatitis Status: Acute Code(s): K85.90 - ACUTE PANCREATITIS WITHOUT NECROSIS OR INFECTION, UNSP (2) Cholelithiasis Status: Acute (3) Bipolar 1 disorder Status: Acute Code(s): F31.9 - BIPOLAR DISORDER, UNSPECIFIED (4) HTN (hypertension) Status: Acute Code(s): I10 - ESSENTIAL (PRIMARY) HYPERTENSION (5) Leukocytosis Status: Acute Code(s): D72.829 - ELEVATED WHITE BLOOD CELL COUNT, UNSPECIFIED - Discharge Disposition: Home, Self-Care Condition: Stable Prescriptions: Continue Umeclidinium Brm/Vilanterol Tr [Anoro Ellipta 62.5-25 Mcg INH] 1 each IH DAILY Lumateperone Tosylate [Caplyta] 42 mg PO HS Meclizine HCl 25 mg [Antivert 25 mg] 25 mg PO BID PRN PRN Reason: Dizziness Lisinopril 20 mg [Zestril 20 MG] 20 mg PO HS Sertraline HCl 50 mg [Zoloft 50 mg Tablet] 75 mg PO HS Paliperidone [Paliperidone ER] 6 mg PO HS Atorvastatin Calcium 20 mg PO HS Albuterol Sulfate [Albuterol Sulfate Hfa] 2 puff IH Q4HPRN PRN PRN Reason: Shortness Of Breath Instructions: Acute pancreatitis, Cholecystectomy - Discharge instructions Follow up with: TRACI THOMAS [ACTIVE STAFF] - 07/10/24 11:05 am MARY SALDAÑA MD [Primary Care Provider] - 07/09/24 10:00 am Forms: Discharge Instructions, Work/School Release Form
[2024-07-03 05:30] LABS: Absolute Neutrophil Ct (ANC) 12.29 x10^3/uL (1.78-5.38); BASOPHIL % 0.1 % (0.2-1.2); Basophil (Absolute #) 0.02 x10^3/uL (0.01-0.08); Eosinophil (Absolute #) 0 x10^3/uL (0.04-0.54); Hematocrit 35.4 % (40.1-51.0); IMMATURE GRAN # 0.08 x10^3u/L (0.001-0.031); IMMATURE GRAN % 0.6 % (0.001-0.429); Lymphocyte (Absolute #) 1.07 x10^3/uL (1.32-3.57); Lymphocytes % 7.5 % (21.8-53.1); Mean Cell Volume 88.1 fL (79.0-92.2); Mean Corpuscular Hemoglobin 29.9 pg (25.7-32.2); Mean Corpuscular Hgb Concent. 33.9 g/dL (32.3-36.5); Mean Platelet Volume 11.2 fL (9.4-12.4); Monocyte (Absolute #) 0.72 x10^3/uL (0.30-0.82); Monocytes % 5.1 % (5.3-12.2); Neutrophil % 86.7 % (34.0-67.9); Platelet Count 188 x10^3/uL (163-337); Red Blood Count 4.02 x10^6/uL (4.63-6.08); Red Cell Distribution Width 12.2 % (11.6-14.4); White Blood Count 14.2 x10^3/uL (4.23-9.07)
[2024-07-03 05:53] LABS: ALBUMIN 3.5 g/dL (3.5-5.0); ANION GAP 13.6 MEQ/L (5-15); BILIRUBIN,TOTAL 0.5 mg/dL (0.2-1.3); Calcium 8.9 mg/dL (8.4-10.2); Creatinine 1 0.74 mg/dL (0.66-1.25); EST GLOMERULAR FILTRATION RATE 111.8 ML/MIN; Potassium 4.2 mmol/L (3.5-5.1); Total Protein 6.6 g/dL (6.3-8.2)
[2024-07-03 07:56] VITALS: RESP 16
[2024-07-03] MEDS: ENOXAPARIN SODIUM SQ SCH (09:55)
[2024-07-03] MEDS: ANTIVERT 25 MG PO PRN (10:07)
[2024-07-03 12:09] VITALS: BP 126/71; PULSE 94; TEMP 97.5; O2SAT 95
[2024-07-04] MEDS ORDERED: PATIENT OWN MEDICATION PO SCH (22:00)
--- NOTE | 2024-07-05 19:50 | OP ---
SURGERY DATE/TIME: 07/02/2024 1104 - 1159 PREOPERATIVE DIAGNOSES: Cholecystitis, cholelithiasis. POSTOPERATIVE DIAGNOSES: Cholecystitis, cholelithiasis. PROCEDURE: Laparoscopic cholecystectomy. SURGEON: Elie Lee MD ANESTHESIA: General endotracheal tube. COMPLICATIONS: None. CONDITION: Stable. BLOOD LOSS: None. DRAINS: None. INDICATIONS: The patient with pancreatitis. Ultrasound revealing stones. Pancreatitis is cleared. He presents for cholecystectomy. DESCRIPTION OF PROCEDURE AND FINDINGS: General anesthetic. Routine prep and drape. Veress needle inserted. Opening pressure of 1. Insufflated to a pressure of 14. Four 5's. Good visualization. Cystic duct was small, 2 mm. Triple Ligaclip medial, single laterally. Cystic artery triple Ligaclip. Gallbladder rolled out of the gallbladder fossa. Gallbladder delivered through the upper abdominal port, epigastric port with scant widening. Hole closure was still used, 0 Vicryl. Skin closed with rose marie. CO2 exsufflated. Patient tolerated the procedure satisfactorily.
== END 2024-07-03 13:22 | disposition home or self-care (01) ==
LOC: ED 21:06 → MED SURG 06-30 01:13
PROVIDERS: ADMIT Internal Medicine; ATTEND Internal Medicine
DX: K85.90 Acute pancreatitis without necrosis or infection, unspecified (principal); K80.20 Calculus of gallbladder without cholecystitis without obstruction; F31.9 Bipolar disorder, unspecified; I10 Essential (primary) hypertension; R10.11 Right upper quadrant pain; F10.21 Alcohol dependence, in remission; E78.5 Hyperlipidemia, unspecified; D72.829 Elevated white blood cell count, unspecified; Z79.899 Other long term (current) drug therapy
CPT/HCPCS: 36000; 36415; 47562; 71045; 74176; 76705; 80053; 80061; 81001; 83036; 83605; 83690; 83721; 84484; 85025; 85027; 93005; 94640; 94760; 96360; 96374; 96375; 96376; 99285; Q3014; G0378; J1100; J1885; J1956; J2250; J2270; J2371; J2405; J2704; J3010; A9270-GY